=== PATIENT | female | born 1950 | race Caucasian/White ===

== ENCOUNTER 2018-07-18 05:34 | Inpatient (IN) | payer OTHER, MEDICARE ==
[2018-07-11 12:43] LABS: URINE BILIRUBIN NEGATIVE (Negative); URINE BLOOD NEGATIVE (Negative); URINE CLARITY CLEAR; URINE COLOR YELLOW; URINE GLUCOSE-RANDOM* NEGATIVE (Negative); URINE KETONES NEGATIVE (Negative); URINE NITRITE-REFLEX NEGATIVE (Negative); URINE PROTEIN (DIPSTICK) NEGATIVE (Negative); URINE SPECIFIC GRAVITY <= 1.005 (1.005-1.035); URINE UROBILINOGEN 0.2 E.U./dl (0.2-1.0)
[2018-07-11 12:44] LABS: URINE LEUKOCYTES-REFLEX TRACE (Negative)
[2018-07-11 13:07] LABS: HEMATOCRIT 37.2 % (37.0-47.0); HEMOGLOBIN 12.5 gm/dL (12.0-15.0); MCH 32.1 pg (26.0-34.0); MCHC 33.7 g/dL (28.0-37.0); MCV 95.2 fL (80.0-100.0); RBC 3.9 mil/uL (4.20-5.00); RDW 12.8 % (10.5-14.5); WBC 7.2 thou/uL (4.0-11.0)
[2018-07-11 13:16] LABS: CALCIUM 9.5 mg/dL (8.5-10.1); CREATININE 0.9 mg/dL (0.6-1.0); POTASSIUM 4.2 mmol/L (3.5-5.1)
[2018-07-11 13:18] LABS: PROTIME 9.6 Seconds (9.3-11.4)
[2018-07-18] VITALS (10 sets, daily range): BP systolic 130–141; BP diastolic 60–71
[~2018-07-18] VITALS: Ht 160 cm; Wt 70.3 kg
--- NOTE | ~2018-07-18 | O ---
[facility] [place] [address] OPERATIVE REPORT Name: FATEMEH CANDELARIO Room #: 449-I ADM IN M.R.#: [id number] Admission: 07/18/18 Attend Phys: Christopher Sin MD Discharge: Date of : 50 Report #: [id number] THIS REPORT FOR: //name// CC: Christopher Warren DATE OF SERVICE: 07/18/2018 PREOPERATIVE DIAGNOSIS: Right knee osteoarthritis. POSTOPERATIVE DIAGNOSIS: Right knee osteoarthritis. PROCEDURE: Right total knee arthroplasty using Navio robotic assistance. SURGEON: Christopher Sin M.D. BUS SYSTEM OPERATOR: Melissa Headley PA-C. INDICATION FOR BUS SYSTEM OPERATOR: Throughout the case, extensive retraction and manipulation of the knee was required. This was afforded to me by my radiology physician assistant. ANESTHESIA: LMA with an adductor canal block. IMPLANTS: [employer]hew size 5 Legion cobalt chrome narrow femur, size 3 tibia, size 11 high-constrained polyethylene and size 32 patella. TOURNIQUET TIME: 60 minutes. ESTIMATED BLOOD LOSS: 25 mL. COMPLICATIONS: None. SPECIMENS: None. CONDITION UPON LEAVING THE OPERATING ROOM: Stable. INDICATIONS FOR PROCEDURE: The patient is a 67-year-old female with right knee osteoarthritis. She had failed conservative measures for this and after discussion with her, she elected for right total knee arthroplasty. DESCRIPTION OF PROCEDURE: Risks, benefits, alternatives and complications were discussed in detail with the patient, including but not limited to risk of anesthesia; risk of damage to nerves, arteries, blood vessels; risk for infection, bleeding; risk for continued knee pain and need for reoperation. Informed consent was obtained from the patient. [facility] [address] [place] [address] OPERATIVE REPORT Name: FATEMEH CANDELARIO Room #: 449-I [facility] IN [facility].#: [id number] Admission: 07/18/18 Attend Phys: Christopher Sin MD Discharge: Date of : 50 Report #: [id number] The right knee was appropriately marked in the preoperative holding area. Adductor canal block was placed by anesthesia. She was brought to the operating room and placed in supine position on the operating room table. LMA anesthesia was induced without complication. Tourniquet was placed on the right thigh. Right lower extremity was prepped and draped in normal sterile fashion. Timeout was performed properly, identifying the patient and procedure as well as the instrumentation; all in the operating room were in agreement. Right lower extremity was exsanguinated, tourniquet was inflated. Tourniquet time 60 minutes. Standard midline approach to the knee was made with 10 blade through the skin. Dissection was taken down sharply to the fascia and deep flaps were developed medially and laterally. Fresh 10 blade was used to make a medial parapatellar arthrotomy and the knee was inspected and there was severe medial compartment arthritis with moderate lateral and patellofemoral involvement. Anterior horns of meniscus were removed sharply. ACL and PCL were removed sharply. Reference pins were then placed in the femur and the tibia and the knee was digitally mapped using the Celly robotic system. We sized a size 5 femur and a size 3 tibia. After acceptance over the intraoperative plan, the distal femoral cut was made with the Navio bryce. The 4-in-1 cutting block was placed. Anterior, posterior and chamfer cuts were made. Attention was then turned to the tibia and the tibial resection guide was pinned in place using the Navio navigation system. Tibial resection was then made. Flexion and extension gaps were then checked and found to have good balance in flexion and extension. Tibia was sized and found to be a size 3. Size 3 tibial trial was placed, pinned and punched. A size 5 femoral trial was placed and the box cut was made. This was then trialed with a size 10 and then a size 11 polyethylene. She did have some instability medially and it was felt that we perhaps stretched her MCL throughout the case and it was felt this could be made up for with a highly constrained implant. A 9 mm was taken off the posterior surface of the patella and a size 32 trial patella was placed. Knee was taken through range of motion, found to be stable and found to have good patellar tracking. Trial components were removed. A final size 3 tibia, size 5 Legion posterior-stabilized cobalt chrome narrow femur and a size 32 patella were cemented in place using standard cementation techniques. While the cement cured, periarticular injection consisting of morphine, ropivacaine, epinephrine and Toradol was placed around the knee joint capsule. After the cement cured, tourniquet was deflated. Hemostasis was obtained with Bovie cautery. A final size 11 highly-constrained polyethylene was placed. A gram of vancomycin was placed deep in the joint. The fascia was closed with 0 Vicryl, skin was closed with 2-0 Vicryl and 3-0 Monocryl. Dermabond and ESTEFANI dressing was applied. The patient tolerated this procedure well and went to the recovery room under the care of anesthesia postoperatively. <ELECTRONICALLY SIGNED> By: Christopher Sin MD 07/18/18 1713 [id number] 1023 Christopher Sin MD /nt
--- NOTE | ~2018-07-18 | EKG ---
[address] [address] ELECTROCARDIOGRAM REPORT Name: FATEMEH CANDELARIO Room #: [facility] IN [facility]#: [id number] Admission: Attend Phys: Christopher Sin MD Discharge: Date of : 50 Report #: [id number] THIS REPORT FOR: //name// [facility] Test Date: 2018-07-11 Test Time: 12:58:29 Pat Name: FATEMEH CANDELARIO Department: Room: Gender: F Facilities Plant Engineer: JOSUE CONNOLLY : 1950 Requested By: Christopher Sin Order Number: [id number] MD: Measurements Intervals [place] Rate: 71 P: 15 LA: 158 QRS: -13 QRSD: 86 T: 11 QT: 385 QTc: 419 Interpretive Statements Sinus rhythm Inferior infarct, old No previous ECG available for comparison [email or web address] By: 1258 [id number] Nic Lucero MD /EPI
[~2018-07-18 05:34] MED LIST: AMBIEN 5 MG TABL5 M1 PO; ESTRADIOL 1 MG T1 M1 PO; TYLENOL EXTRA500 MG PO
[2018-07-19 03:47] VITALS: BP 11/55
[2018-07-19 05:33] LABS: HEMATOCRIT 29.1 % (37.0-47.0); HEMOGLOBIN 9.8 gm/dL (12.0-15.0); MCH 32.3 pg (26.0-34.0); MCHC 33.6 g/dL (28.0-37.0); MCV 96.1 fL (80.0-100.0); RBC 3.03 mil/uL (4.20-5.00); RDW 12.9 % (10.5-14.5); WBC 14.6 thou/uL (4.0-11.0)
[2018-07-19 08:45] VITALS: BP 106/58
[2018-07-19 12:00] VITALS: BP 111/49
[2018-07-19 16:12] VITALS: BP 125/49
[2018-07-19 18:56] VITALS: BP 123/42
[2018-07-20 04:04] VITALS: BP 124/52
[2018-07-20 05:48] LABS: HEMATOCRIT 28.3 % (37.0-47.0); HEMOGLOBIN 9.6 gm/dL (12.0-15.0); MCH 32.4 pg (26.0-34.0); MCHC 34.1 g/dL (28.0-37.0); MCV 95.2 fL (80.0-100.0); RBC 2.97 mil/uL (4.20-5.00); RDW 13.1 % (10.5-14.5); WBC 9.7 thou/uL (4.0-11.0)
[2018-07-20 07:17] VITALS: BP 125/53
[2018-07-20] MEDS ORDERED: NEURONTIN 300300 M1 PO (12:37)
[2018-07-20] MEDS ORDERED: TRI-BUFFERED A325 M1 PO (12:37)
[2018-07-20 13:47] VITALS: BP 125/53
== END 2018-07-20 14:19 | disposition home or self-care (01) | DRG 470 ==
LOC: PRE 05:34 → 4W 07:01 → TBA 07:01 → PRE 11:12 → ENTRNSPT 07-20 14:04 → EDTRNSPTSTS 07-20 14:06 → 4W 07-20 14:19
PROVIDERS: Orthopaedic Surgery
PROC: 8E0Y0CZ Robotic Assisted Procedure of Lower Extremity, Open Approach (ICD-10-PCS; principal; 2018-07-18)
PROC: 0SRC0J9 Replacement of Right Knee Joint with Synthetic Substitute, Cemented, Open Approach (ICD-10-PCS; principal; 2018-07-18)
DX: M17.11 Unilateral primary osteoarthritis, right knee (principal)
CPT/HCPCS: 10047; 50010; 50101; 50415; 50954; 51130; 51225; 51771; 53000; 53078; 53364; 54118; 56527; 56528; 57095; 57103; 57109; 57110; 57113; 57127; 57180; 62110; 62900; 64042; 70005

== ENCOUNTER → 2019-03-22 | Outpatient (CLI) | payer OTHER, MEDICARE ==
[~2019-03-22] MED LIST changes: +NEURONTIN 300300 M1 PO; +TRI-BUFFERED A325 M1 PO
== END ==
LOC: MRI 12:28
DX: M47.816 Spondylosis without myelopathy or radiculopathy, lumbar region (principal); M89.38 Hypertrophy of bone, other site